=== PATIENT | male | born 1965 | race American Indian/Alaskan Native ===

== ENCOUNTER → 2025-01-26 | Outpatient (CLI) | payer MEDICAID, SELFPAY ==
--- NOTE | 2025-01-26 10:11 | XR_ITS ---
Examination: AP knees bilateral single view TECHNIQUE: AP standing bilateral knees single view Date and time: January 26, 2025 1012 hours INDICATIONS: Bilateral knee swelling and pain beginning one year ago. FINDINGS: Moderate osteopenia. Severe bilateral narrowing medial joint spaces Moderate osteoarthritis lateral joint spaces. No fracture IMPRESSION: Severe narrowing medial joint spaces bilaterally
== END | disposition home or self-care (01) ==
LOC: CDIM 10:00
PROVIDERS: PCP Nurse Practitioner Family; Referring Provider Nurse Practitioner Family; Visit Provider Nurse Practitioner Family
DX: M25.862 Other specified joint disorders, left knee (principal); M25.861 Other specified joint disorders, right knee
CPT/HCPCS: 73565